=== PATIENT | female | born 1955 | race Caucasian/White ===

== ENCOUNTER → 2017-01-23 | Outpatient (CLI) | payer MEDICARE, OTHER ==
--- NOTE | 2017-01-23 16:07 | RADRPT ---
PROCEDURE: Nuclear medicine parathyroid scan CLINICAL INDICATION: Primary hyperparathyroidism. Osteoporosis TECHNIQUE: Following the intravenous injection of 20 mCi technetium 99 sestamibi, anterior and kanchan ateral oblique images of the neck and chest from the skull base to the diaphragm are obtained at 5 m inutes and 3 hours following injection, a total of 6 images sent to the PACS for review COMPARISON: None available FINDINGS: Normal distribution of radiopharmaceutical is present within the parotid, submandibular and salivary glands as well as within the left ventricle. There are no abnormal foci of increased radiopharmace utical accumulation within the visceral space or mediastinum to confirm the presence of a parathyroi d adenoma. RPTAT:HJJR IMPRESSION: Negative parathyroid scan. Physician Bryson Date Time Electronically viewed and signed by Physician Bryson on 01/23/2017 16:07 JR/
== END | disposition home or self-care (01) ==
LOC: NUC 11:35
PROVIDERS: ATTEND Internal Medicine
DX: E05.90 Thyrotoxicosis, unspecified without thyrotoxic crisis or storm (principal); M81.0 Age-related osteoporosis without current pathological fracture
CPT/HCPCS: 78070; A9500